=== PATIENT | female | born 1970 | race Caucasian/White ===

== ENCOUNTER 2022-01-09 19:13 | Emergency (ER) | payer OTHER, SELFPAY ==
[2022-01-09 19:20] VITALS: BP 134/98; PULSE 90; RESP 16; TEMP 36.6; O2SAT 96
--- NOTE | 2022-01-09 21:08 | XRR_ITS ---
PROCEDURE INFORMATION: Exam: XR Chest Exam date and time: 01/09/2022 9:21 PM Age: 51 years old Clinical indication: Cough TECHNIQUE: Imaging protocol: Radiologic exam of the chest. Views: 1 view. COMPARISON: No relevant prior studies available. FINDINGS: Lungs: Unremarkable. No consolidation. Pleural spaces: Unremarkable. No pleural effusion. No pneumothorax. Heart/Mediastinum: Unremarkable. No cardiomegaly. Bones/joints: Unremarkable. XR/XR chest 1V portable [id number] IMPRESSION: No acute findings.
--- NOTE | 2022-01-09 21:08 | W.ED.NAVMDI ---
HPI - Nausea/Vomiting/Diarrhea General: Chief complaint: Nausea/Vomiting/Diarrhea Stated complaint: N\V Lower Back Pain\Muscles Ache Time Seen by Provider: 01/09/22 21:03 Source: patient Mode of arrival: ambulatory Limitations: no limitations History of Present Illness: 51-year-old female states that since Sunday she has been having a fever along with body aches and feeling ill states she had vomiting and diarrhea since then as well. She said some lower back pain denies any blood in her stool or vomit she had a slight cough as well her last fever was 2 days ago she denies any worsening proving factors states her has been ill as well. Associated nausea: Yes Associated symtoms: Reports nausea; Denies chest pain, dysuria or headache(s) Review of Systems Const: Reports: fever(s), chills and body aches Eyes: Denies: blurry vision or eye discomfort ENMT: Denies: throat pain or dental pain Card: Denies: chest pain Resp: Denies: dyspnea GI: Reports: nausea, vomiting and diarrhea : Denies: dysuria Musc: Denies: neck pain or back pain Skin/Breast: Denies: rash Neuro: Denies: headache(s) Psych: Denies: depression Albin/Lymph: Denies: easy bruising All/Imm: Denies: urticaria PFSH ED PFSH: Medical History Hypertension Social History (Updated 01/09/22 @ 21:09 by Sharon Ross MD) Substance/Drug Use: never Physical Exam Const: COMMON NORMALS: no acute distress, patient oriented x3 and healthy appearing HENMT: COMMON NORMALS: normocephalic and atraumatic HEAD & SCALP: normocephalic and atraumatic Eye: COMMON NORMALS: Equal, round and reactive pupils present and EOMs intact bilaterally PUPIL: Yes Equal, round and reactive pupils present Neck/C-Spine: COMMON NORMALS: full ROM and supple Chest: COMMONS NORMALS: normal inspection of the chest and normal palpation of entire chest wall Resp: COMMON NORMALS: normal respiratory effort, No retractions, No use of accessory muscles and clear to auscultation bilaterally AUSCULTATION: clear to auscultation bilaterally Cardio: COMMON NORMALS: regular rate, regular rhythm and No murmurs present (Cardio) RATE: regular rate RHYTHM: regular rhythm GI: COMMON NORMALS: Normal to inspection, nondistended, normoactive bowel sounds present, Soft to palpation, non-tender and no masses PALPATION: Yes Soft to palpation Extremity: COMMON NORMALS: normal to inspection and full ROM Neuro: COMMON NORMALS: patient oriented x3, moves all extremities and no focal motor deficits Psych: COMMON NORMALS: mental status grossly normal, Normal thought process present and cooperative THOUGHT PROCESS: Normal thought process present Skin: COMMON NORMALS: no rashes or lesions noted and no wounds GENERAL SKIN EXAM: no rashes or lesions noted Course Vital Signs: Vital signs: Vital Signs Temperature 97.8 F 01/09/22 19:20 Pulse Rate 90 01/09/22 21:23 Respiratory Rate 14 01/09/22 21:23 Blood Pressure 142/94 01/09/22 21:23 Pulse Oximetry 96 01/09/22 19:20 Oxygen Delivery Me thod 01/09/22 19:20 MDM - Nausea/Vomiting/Diarrhea Medical Decision Making Patient presents here with fever body aches vomiting consistent with her COVID she did test positive for COVID here she is well-appearing she is stable for discharge she feels improved after fluids we will prescribe her Zofran for home as well. Lab Data : 01/09/22 21:15 01/09/22 21:15 Laboratory Results WBC 4.2 10^3/uL (4.0-10.0) 01/09/22 21:15 RBC 5.30 10^6/uL (4.1-5.3) 01/09/22 21:15 Hgb 15.3 g/dL (11.5-15.3) 01/09/22 21:15 Hct 44.5 % (37.0-47.0) 01/09/22 21:15 MCV 84.0 fl (81-99) 01/09/22 21:15 MCH 28.9 pg (28.0-34.0) 01/09/22 21:15 MCHC 34.4 g/dL (30.0-36.0) 01/09/22 21:15 RDW 12.3 % (12.1-15.1) 01/09/22 21:15 Plt Count 281 10^3/cmm (130-400) 01/09/22 21:15 MPV 9.6 fL (7.4-10.4) 01/09/22 21:15 Neut % (Auto) 46.9 % 01/09/22 21:15 Lymph % (Auto) 41.1 % 01/09/22 21:15 [place] % (Auto) 11.1 % 01/09/22 21:15 Eos % (Auto) 0.5 % 01/09/22 21:15 Baso % (Auto) 0.2 % 01/09/22 21:15 Neut # (Auto) 1.98 10^3/uL (1.8-7.7) 01/09/22 21:15 Lymph # (Auto) 1.7 10^3/uL (0.8-4.8) 01/09/22 21:15 [place] # (Auto) 0.5 10^3/uL (0.2-0.9) 01/09/22 21:15 Eos # (Auto) 0.0 10^3/uL (0.0-0.8) 01/09/22 21:15 Baso # (Auto) 0.0 10^3/uL (0.0-0.1) 01/09/22 21:15 Nucleated RBC % (auto) 0 % 01/09/22 21:15 Nucleated RBCs # 0.0 /100WBC 01/09/22 21:15 Sodium 135 mmol/L (136-145) L 01/09/22 21:15 Potassium 3.0 mmol/L (3.5-5.1) L 01/09/22 21:15 Chloride 92 mmol/L (98-107) L 01/09/22 21:15 Carbon Dioxide 30 mmol/L (22-29) H 01/09/22 21:15 Anion Gap 16.0 (5-19) 01/09/22 21:15 BUN 6 mg/dL (6-20) 01/09/22 21:15 Creatinine 0.4 mg/dL (0.5-0.9) L 01/09/22 21:15 GFR Calculation 167.0 mL/min (90-130) H 01/09/22 21:15 Glucose 88 mg/dL (65-115) 01/09/22 21:15 Calculated Osmolality 277 mOsm/kg (285-295) L 01/09/22 21:15 Calcium 9.2 mg/dL (8.5-10.5) 01/09/22 21:15 Total Bilirubin 0.4 mg/dL (0.15-1.2) 01/09/22 21:15 AST 41 U/L (0-32) H 01/09/22 21:15 ALT 32 U/L (0-33) 01/09/22 21:15 Alkaline Phosphatase 70 U/L (35-105) 01/09/22 21:15 Total Protein 7.1 g/dL (6.6-8.7) 01/09/22 21:15 Albumin 4.6 g/dL (3.5-5.2) 01/09/22 21:15 Globulin 2.5 g/dL (1.3-4.6) 01/09/22 21:15 Lipase 23 U/L (13-60) 01/09/22 21:15 SARS-CoV-2 Ag (Rapid) Positive (Negative) H 01/09/22 21:20 Discharge Plan Discharge Patient Disposition: Home Clinical Impression: COVID-19 Prescriptions: New ondansetron 4 mg tablet,disintegrating 4 mg PO Q6H PRN (Reason: nausea and vomiting) Qty: 14 0RF Discharge Orders: Discharge ED (Routine); Ordered 01/09/22 Ordered By: Sharon Ross Discharge Diet: Advance as tolerated Discharge Activity: Resume usual activity Patient Instructions: COVID-19 (Coronavirus Disease 2019) (ED) Coding Level of Care Code ED Furnace Combination Analyst for Paco Fwd Exam Comprehensive
[2022-01-09 21:23] VITALS: BP 142/94; PULSE 90; RESP 14
[2022-01-09] MEDS: ondansetron 2 mg/ML SDV 2 mL 4 MG IVP (21:25)
[2022-01-09] MEDS: sodium chloride 0.9% 1,000 ML 999 ML IV (21:25)
[2022-01-09 21:32] LABS: Basophils % 0.2 %; Eosinophils % 0.5 %; Hematocrit 44.5 % (37.0-47.0); Hemoglobin 15.3 g/dL (11.5-15.3); Lymphocytes # 1.7 10^3/uL (0.8-4.8); Lymphocytes % 41.1 %; Mean Corpuscular HGB Conc 34.4 g/dL (30.0-36.0); Mean Corpuscular Hemoglobin 28.9 pg (28.0-34.0); Mean Platelet Volume 9.6 fL (7.4-10.4); Monocytes # 0.5 10^3/uL (0.2-0.9); Monocytes % 11.1 %; Neutrophils # 1.98 10^3/uL (1.8-7.7); Neutrophils % 46.9 %; Nucleated Red Blood Cells % 0 %; Platelet Count 281 10^3/cmm (130-400); Red Cell Distribution Width 12.3 % (12.1-15.1); White Blood Count 4.2 10^3/uL (4.0-10.0)
[2022-01-09 22:03] LABS: SARS Covid-2 Antigen Positive (Negative)
[2022-01-09 22:04] LABS: Alanine Aminotransferase 32 U/L (0-33); Albumin Level 4.6 g/dL (3.5-5.2); Alkaline Phosphatase 70 U/L (35-105); Aspartate Amino Transferase 41 U/L (0-32); Blood Urea Nitrogen 6 mg/dL (6-20); Calcium 9.2 mg/dL (8.5-10.5); Carbon Dioxide 30 mmol/L (22-29); Chloride 92 mmol/L (98-107); Globulin 2.5 g/dL (1.3-4.6); Glucose 88 mg/dL (65-115); Lipase 23 U/L (13-60); Osmolality Calculated 277 mOsm/kg (285-295); Sodium 135 mmol/L (136-145); Total Bilirubin 0.4 mg/dL (0.15-1.2); Total Protein 7.1 g/dL (6.6-8.7)
[2022-01-09] MEDS: potassium chloride ER 20 mEq Tablet 40 MEQ PO (22:38)
[2022-01-09 23:04] LABS: Add Urine Microscopic? YES; Bilirubin Urine 1+ (Negative); Blood Urine Trace (Negative); Glucose Urine UA Norm (Normal); Ketones Urine 1+ (Negative); Leukocyte Esterase Urine Trace (Negative); Nitrate Urine Negative (Negative); Protein Urine 1+ (Negative); Specific Gravity, Urine 1.015 (1.005-1.030); Urine Appearance Hazy (CLEAR); Urine Color Yellow (Yellow); Urobilinogen Urine Norm (Negative); pH Urine 6 (5-7)
[2022-01-09 23:05] LABS: Bacteria Urine TRACE /hpf; RBC Urine RARE /hpf (0-2); Squamous Epithelial Cell Urine RARE /hpf (0-5); WBC Urine RARE /hpf (0-5)
[2022-01-09 23:11] VITALS: BP 145/93; PULSE 90; RESP 14
[2022-01-11 15:08] LABS: Lyme AB Screen <0.90 index
[2022-01-13 21:18] LABS: E. Chaffeensis AB IGG <1:64; E. Chaffeensis AB IGM <1:20
[2022-01-24 17:02] LABS: RMSF IGG DETECTED; RMSF IGM NOT DETECTED
== END 2022-01-09 23:12 | disposition home or self-care (01) ==
PROVIDERS: Emergency Provider Emergency Medicine
DX: U07.1 COVID-19 (principal); I10 Essential (primary) hypertension
CPT/HCPCS: 71045; 80053; 81001; 83690; 85025; 86618; 86666; 86757; 87426; 96361; 96374; 99284; J2405; J7030

== ENCOUNTER 2023-09-23 09:41 | Emergency (ER) | payer OTHER, SELFPAY ==
[2023-09-23 09:44] VITALS: BP 165/105; PULSE 100; RESP 16; TEMP 37.1; O2SAT 94
--- NOTE | 2023-09-23 10:08 | XRR_ITS ---
PROCEDURE INFORMATION: Exam: XR Chest Exam date and time: 09/23/2023 10:15 AM Age: 53 years old Clinical indication: Other: N/v; Additional info: Shortness of breath TECHNIQUE: Imaging protocol: Radiologic exam of the chest. Views: 1 view. Total images: 400 COMPARISON: CR XR chest 1V portable [id number] 01/09/2022 9:21 PM FINDINGS: Lungs: Unremarkable. No consolidation. Pleural spaces: Unremarkable. No pleural effusion. No pneumothorax. Heart/Mediastinum: Unremarkable. No cardiomegaly. Bones/joints: Unremarkable. XR/XR chest 1V [id number] IMPRESSION: No acute findings.
[2023-09-23 10:41] LABS: Basophils % 0.5 %; Eosinophils # 0.1 10^3/uL (0.0-0.8); Hematocrit 44.9 % (36-47); Lymphocytes # 1.4 10^3/uL (0.8-4.8); Lymphocytes % 22.2 %; Mean Corpuscular HGB Conc 33.9 g/dL (30-55); Mean Corpuscular Hemoglobin 28.7 pg (27-33); Mean Corpuscular Volume 84.9 fl (85-98); Monocytes # 0.7 10^3/uL (0.2-0.9); Monocytes % 11.3 %; Neutrophils # 4.09 10^3/uL (1.8-7.7); Neutrophils % 64.8 %; Nucleated Red Blood Cells % 0 %; Platelet Count 354 10^3/cmm (157-399); Red Blood Count 5.29 10^6/uL (3.85-5.65); Red Cell Distribution Width 12.7 % (12.1-15.1)
[2023-09-23 11:00] LABS: Alanine Aminotransferase 14 U/L (0-33); Albumin Level 4.1 g/dL (3.5-5.2); Alkaline Phosphatase 80 U/L (35-105); Anion Gap 20.7 (5-19); Aspartate Amino Transferase 16 U/L (0-32); Blood Urea Nitrogen 6 mg/dL (6-20); C Reactive Protein 86.2 mg/L (0.0-4.9); Calcium 9.5 mg/dL (8.5-10.5); Carbon Dioxide 25 mmol/L (22-29); Chloride 96 mmol/L (98-107); Globulin 3.7 g/dL (1.3-4.6); Glomerular Filtration Rate 128.1 mL/min (90-130); Glucose 87 mg/dL (65-115); Lipase 16 U/L (13-60); Osmolality Calculated 281 mOsm/kg (285-295); Potassium 4.7 mmol/L (3.5-5.1); Sodium 137 mmol/L (136-145); Total Bilirubin 0.4 mg/dL (0.15-1.2); Total Protein 7.8 g/dL (6.6-8.7)
--- NOTE | 2023-09-23 11:42 | ECG_ITS ---
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 Measurements Intervals [place] Rate: 63 P: 79 OR: 159 QRS: 62 QRSD: 82 T: 64 QT: 401 QTc: 414 Interpretive Statements SINUS RHYTHM SEPTAL MYOCARDIAL INFARCTION , OF INDETERMINATE AGE [40+ ms Q WAVE IN V1/V2] No previous ECG available for comparison Electronically Signed On 09-23-2023 13:09:27 CDT by Gracia Wood M.D. [id number]
--- NOTE | 2023-09-23 11:51 | ED_ITS ---
HPI - Nausea/Vomiting/Diarrhea 2 General: Chief complaint: Nausea/Vomiting/Diarrhea Stated complaint: n/v, headache Time Seen by Provider: 09/23/23 11:38 History of Present Illness: 53-year-old female presents emergency ro om complaining of nausea and vomiting for the last 3 days has had small amounts of blood and sinus drainage. Subjective fevers with headache nausea and vomiting. No hemoptysis. Denies productive cough or shortness of breath PFSH ED 2 PFSH: Medical History Hypertension Social History (Updated 01/09/22 @ 21:09 by Sharon Ross MD) Substance/Drug Use: never Course 2 Vital Signs: Vital signs: Vital Signs Temperature 98.8 F 09/23/23 09:44 Pulse Rate 100 09/23/23 09:44 Respiratory Rate 18 09/23/23 13:02 Blood Pressure 175/95 09/23/23 12:56 Pulse Oximetry 98 09/23/23 13:02 Oxygen Delivery Me thod Room Air 09/23/23 13:02 MDM - Nausea/Vomiting/Diarrhea Medical Decision Making Labs unremarkable except for some small amounts of hematuria. CT done did not show any acute abnormalities. Will have patient follow-up with her primary care if has any further symptoms regarding this. I think a lot of the recurrent symptoms are being driven by sinus drainage with likely sinusitis we will start her on oral antibiotics Augmentin twice daily Phenergan as needed for nausea vomiting follow-up with primary care if not improving Medical Records I reviewed the patient's medical records. Lab Data I reviewed the patient's lab results. 09/23/23 10:35 09/23/23 10:35 Radiology Impressions Chest X-Ray 09/23/23 10:08 IMPRESSION: No acute findings. Abdomen/Pelvis CT 09/23/23 13:05 IMPRESSION: 1. No renal, ureteral, nor bladder calculi detected. 2. No acute intra-abdominal pathology. Laboratory Results WBC 6.30 10^3/uL (3.29-11.43) 09/23/23 10:35 RBC 5.29 10^6/uL (3.85-5.65) 09/23/23 10:35 Hgb 15.20 g/dL (11.27-16.99) 09/23/23 10:35 Hct 44.9 % (36-47) 09/23/23 10:35 MCV 84.9 fl (85-98) L 09/23/23 10:35 MCH 28.7 pg (27-33) 09/23/23 10:35 MCHC 33.9 g/dL (30-55) 09/23/23 10:35 RDW 12.7 % (12.1-15.1) 09/23/23 10:35 Plt Count 354 10^3/cmm (157-399) 09/23/23 10:35 MPV 9.0 fL (7.4-10.4) 09/23/23 10:35 Neut % (Auto) 64.8 % 09/23/23 10:35 Lymph % (Auto) 22.2 % 09/23/23 10:35 [place] % (Auto) 11.3 % 09/23/23 10:35 Eos % (Auto) 1.0 % 09/23/23 10:35 Baso % (Auto) 0.5 % 09/23/23 10:35 Neut # (Auto) 4.09 10^3/uL (1.8-7.7) 09/23/23 10:35 Lymph # (Auto) 1.4 10^3/uL (0.8-4.8) 09/23/23 10:35 [place] # (Auto) 0.7 10^3/uL (0.2-0.9) 09/23/23 10:35 Eos # (Auto) 0.1 10^3/uL (0.0-0.8) 09/23/23 10:35 Baso # (Auto) 0.0 10^3/uL (0.0-0.1) 09/23/23 10:35 Nucleated RBC % (auto) 0 % 09/23/23 10:35 Nucleated RBCs # 0.0 /100WBC 09/23/23 10:35 Sodium 137 mmol/L (136-145) 09/23/23 10:35 Potassium 4.7 mmol/L (3.5-5.1) 09/23/23 10:35 Chloride 96 mmol/L (98-107) L 09/23/23 10:35 Carbon Dioxide 25 mmol/L (22-29) 09/23/23 10:35 Anion Gap 20.7 (5-19) H 09/23/23 10:35 BUN 6 mg/dL (6-20) 09/23/23 10:35 Creatinine 0.5 mg/dL (0.5-0.9) 09/23/23 10:35 GFR Calculation 128.1 mL/min (90-130) 09/23/23 10:35 Glucose 87 mg/dL (65-115) 09/23/23 10:35 Calculated Osmolality 281 mOsm/kg (285-295) L 09/23/23 10:35 Calcium 9.5 mg/dL (8.5-10.5) 09/23/23 10:35 Total Bilirubin 0.4 mg/dL (0.15-1.2) 09/23/23 10:35 AST 16 U/L (0-32) 09/23/23 10:35 ALT 14 U/L (0-33) 09/23/23 10:35 Alkaline Phosphatase 80 U/L (35-105) 09/23/23 10:35 C-Reactive Protein 86.2 mg/L (0.0-4.9) H 09/23/23 10:35 Total Protein 7.8 g/dL (6.6-8.7) 09/23/23 10:35 Albumin 4.1 g/dL (3.5-5.2) 09/23/23 10:35 Globulin 3.7 g/dL (1.3-4.6) 09/23/23 10:35 Lipase 16 U/L (13-60) 09/23/23 10:35 Urine Color Yellow (Yellow) 09/23/23 11:53 Urine Appearance Clear (CLEAR) 09/23/23 11:53 Urine pH 5 (5-7) 09/23/23 11:53 Ur Specific [place] 1.020 (1.005-1.030) 09/23/23 11:53 Urine Protein Neg (Negative) 09/23/23 11:53 Urine Glucose (UA) Norm (Normal) 09/23/23 11:53 Urine Ketones 3+ (Negative) H 09/23/23 11:53 Urine Blood 2+ (Negative) H 09/23/23 11:53 Urine Nitrate Negative (Negative) 09/23/23 11:53 Urine Bilirubin 1+ (Negative) H 09/23/23 11:53 Urine Urobilinogen Norm mg/dL (Negative) 09/23/23 11:53 Ur Leukocyte Esterase Negative (Negative) 09/23/23 11:53 Urine RBC 5-10 /hpf (0-2) H 09/23/23 11:53 Urine WBC 0-4 /hpf (0-5) H 09/23/23 11:53 Ur Squamous Epith Cells 0-4 /hpf (0-5) H 09/23/23 11:53 Amorphous Sediment Not Reportable 09/23/23 11:53 Urine Bacteria 1+ /hpf (NONE) H 09/23/23 11:53 Urine Mucus Trace /hpf 09/23/23 11:53 All radiology interpretation(s) finalized by discharge Discharge Plan Discharge Patient Disposition: Home Clinical Impression: Sinusitis, Hypertension, Nausea and vomiting Condition: Stable Prescriptions: New amoxicillin-pot clavulanate 875-125 mg tablet 1 tab PO BID Qty: 20 0RF promethazine 25 mg tablet 25 mg PO Q6H PRN (Reason: nausea and vomiting) Qty: 20 0RF No Action hydrochlorothiazide 25 mg tablet 25 mg PO DAILY nifedipine 60 mg tablet extended release 60 mg PO DAILY Discharge Orders: Discharge ED (Routine); Ordered 09/23/23 Ordered By: Josué Westbrook Discharge Diet: Usual diet Discharge Activity: Increase activity as tolerated Patient Instructions: Opioid Safety, Pain Management Activity Restrictions/Additional Instructions: Thank you for choosing [facility] for your healthcare needs today. Please realize this is an emergency room and that we are providing you with a medical screening exam and this may not be complete and all inclusive of all the testing and or work up that you may need to determine your ailment or severity of your illness. It is very important that you follow up as instructed or that you return to the Emergency Department should you have concerns or if your condition changes or worsens in any way. You were seen today for nausea and vomiting. During the course of your workup. Noted to have a small amount of blood in the urine CT did not show any significant abnormality. Recommend you follow-up with your primary care doctor regarding this. Your blood pressure was also elevated and this should be monitored by your primary care doctor. Continue to take your previously prescribed blood pressure medications. Suspect the sinus drainage bloody noses and nausea and vomiting or largely caused by sinus infection we will start you on Augmentin 1 tablet twice a day for 10 days. Also gave you promethazine to use as needed for nausea and vomiting. Coding Level of Care Code ED Seamstress Fitter for Paco Santoyo
[2023-09-23] MEDS: sodium chloride 0.9% 1,000 ML 999 ML IV (12:08)
[2023-09-23] MEDS: ondansetron 2 mg/ML SDV 2 mL 4 MG IVP (12:08)
[2023-09-23 12:13] VITALS: RESP 18
[2023-09-23 12:21] LABS: Add Urine Microscopic? YES; Bilirubin Urine 1+ (Negative); Blood Urine 2+ (Negative); Glucose Urine UA Norm (Normal); Ketones Urine 3+ (Negative); Leukocyte Esterase Urine Negative (Negative); Nitrate Urine Negative (Negative); Protein Urine Neg (Negative); Urine Appearance Clear (CLEAR); Urine Color Yellow (Yellow); Urobilinogen Urine Norm (Negative); pH Urine 5 (5-7)
[2023-09-23 12:22] LABS: Add Urine Culture? No; Bacteria Urine 1+ /hpf; Mucus Urine TRACE /hpf; Squamous Epithelial Cell Urine 0-4 /hpf (0-5); WBC Urine 0-4 /hpf (0-5)
[2023-09-23 12:56] VITALS: BP 175/95; O2SAT 97
[2023-09-23 13:02] VITALS: RESP 18; O2SAT 98
--- NOTE | 2023-09-23 13:05 | CTR_ITS ---
PROCEDURE INFORMATION: Exam: CT Abdomen And Pelvis Without Contrast Exam date and time: 09/23/2023 1:14 PM Age: 53 years old Clinical indication: Pain and abnormal findings; Abnormal lab test; Other: Microscopic hematuria; Abdominal pain; Generalized; Prior surgery; Surgery date: 6+ months; Surgery type: Hyster; Additional info: Flank pain TECHNIQUE: Imaging protocol: Computed tomography of the abdomen and pelvis without contrast. Total images: 3 Radiation optimization: All CT scans at this facility use at least one of these dose optimization techniques: automated exposure control; mA and/or kV adjustment per patient size (includes targeted exams where dose is matched to clinical indication); or iterative reconstruction. COMPARISON: CR (CHEST, ) 09/23/2023 10:15 AM RADIATION DOSE METRICS: Total DLP (mGy-cm): 461.05 FINDINGS: Diaphragm: A small hiatal hernia is present. Liver: Benign liver granulomas. Gallbladder and bile ducts: Normal. No calcified stones. No ductal dilation. Pancreas: Normal. No ductal dilation. Spleen: Incidental splenic granulomata are noted. Adrenal glands: Normal. No mass. Kidneys and ureters: No renal, ureteral, nor bladder calculi detected. Stomach and bowel: Unremarkable. No obstruction. No mucosal thickening. Appendix: No evidence of appendicitis. Intraperitoneal space: Unremarkable. No free air. No significant fluid collection. Vasculature: Incidental phleboliths noted. Lymph nodes: Unremarkable. No enlarged lymph nodes. Urinary bladder: See Kidneys and ureters finding. Reproductive: Prior hysterectomy noted. Bones/joints: Disc degeneration is most notable at L5/S1. Soft tissues: Unremarkable. Other findings: Moderate atherosclerotic disease burden is evident. CT/CT kidney stone [id number] IMPRESSION: 1. No renal, ureteral, nor bladder calculi detected. 2. No acute intra-abdominal pathology.
== END 2023-09-23 14:03 | disposition home or self-care (01) ==
PROVIDERS: Emergency Medicine; Emergency Provider Family Medicine
DX: J32.9 Chronic sinusitis, unspecified (principal); I10 Essential (primary) hypertension; R11.2 Nausea with vomiting, unspecified
CPT/HCPCS: 71045; 74176; 80053; 81001; 83690; 85025; 86140; 93005; 96374; 99285; J2405; J7030

== ENCOUNTER → 2025-03-10 09:20 | Outpatient (BNVA) | payer OTHER, SELFPAY | PROVIDERS: Visit Provider Student in an Organized Health Care Education/Training Program | DX: M25.511 Pain in right shoulder (principal); R20.0 Anesthesia of skin; R20.2 Paresthesia of skin | CPT/HCPCS: 73030 ==

== ENCOUNTER 2025-04-06 07:56 | Outpatient (CLI) | payer OTHER, SELFPAY ==
--- NOTE | 2025-04-06 | IR_ITS ---
WS: [id number] RIGHT SHOULDER ARTHROGRAM UNDER FLUOROSCOPY. PRIOR TO MRI EVALUATION. HISTORY: rule out labrum tear, prior Bankart lesion repair. COMPARISON: None available. FLUOROSCOPY TIME: 0min [id number] # of spot films: 2 Procedure, risks and complications were explained to the patient. Consent has been obtained. Under fluoroscopic guidance the skin is marked over the medial superior third of the humeral head, cleansed with ChloraPrep and anesthetized with lidocaine. 22- gauge spinal needle is inserted to the cortex of the humeral head. Test injection with Omnipaque reveals the needle is appropriately positioned in the joint. A mixture of 10 cc sterile saline, 5 cc Omnipaque and 0.1 mmol gadolinium are injected under fluoroscopic guidance. Patient tolerated the joint distention well. No complications. IR/IR arthrogram shoulderRT [id number] IMPRESSION: Uncomplicated RIGHT shoulder joint injection prior to MRI.
--- NOTE | 2025-04-06 08:09 | MR_ITS ---
WS: [id number] MRI RIGHT SHOULDER ARTHROGRAM, pre and post arthrogram imaging. HISTORY: RIGHT shoulder pain. Prior shoulder surgery. COMPARISON: Radiograph 03/10/2025 TECHNIQUE: Pre and postcontrast imaging. Gadolinium mixture was injected under fluoroscopy. Coronal T1 fat sat, sagittal T2 fat sat, coronal T2 fat sat, axial proton density, axial T1 nonfat saturation views are submitted. Prearthrogram: Mild AC joint arthritis. Small osteophytes encroaching upon the myotendinous portion of the supraspinatus. There is a small amount of fluid in the subacromial and subdeltoid bursa. Minimal subacromial impingement by an enthesopathy. No os acromiale. Biceps tendon remains in normal position. There is a lobulated cystic mass in the distal supraspinatus tendon. Largest lobulated component measures 11 x 8 mm. There is a small fluid-filled tract extending to the central supraspinatus tendon. This cystic mass extends into the rotator cuff interval. The distal supraspinatus tendon is intact. Infraspinatus and subscapularis tendons and teres minor are intact. No muscle atrophy or edema. Humeral head is slightly high riding. Loss of the normal cartilage involving the superior humeral head. Abnormal signal and contour involving the anterior inferior labrum and the glenoid consistent with a healed prior Bankart repair. There is no edema and no acute tear identified. No labral tear is identified. Post arthrogram: Articular contrast extends along the supraspinatus tendon consistent with interstitial tear. Large lobular component does not distend completely with the injected contrast. The supraspinatus tendon tear can be retracted laterally to the inferior articular surface. No additional tears are identified. Irregularity involving the anterior inferior labral and glenoid from prior repair. There are a few subchondral cystic changes along the inferior glenoid. MR/MR shoulder RT wo/w con [id number] IMPRESSION: 1. Supraspinatus tendon tear extends to the articular surface and interstitial ly along the tendon. 2. Prior repair of the anterior inferior labrum and glenoid secondary to a Ban kart lesion. No acute marrow edema. Suspect these changes are related to the pr ior repair. No acute labral tear identified. 3. Slightly high riding humeral head with loss of cartilage involving the supe rior humeral head closely associated with the site of the supraspinatus tendon tear.
[2025-04-06] MEDS: gadobenate dimeglumine 20 mL vial 3 ML IV (10:24)
[2025-04-06] MEDS: iohexol 240 mg/mL 50 mL Btl 20 ML INTRA-ARTI (10:26)
== END 2025-04-06 07:57 | disposition home or self-care (01) ==
LOC: RAD 07:56
PROVIDERS: Visit Provider Student in an Organized Health Care Education/Training Program
DX: M25.511 Pain in right shoulder (principal); S46.011D Strain of muscle(s) and tendon(s) of the rotator cuff of right shoulder, subsequent encounter; X58.XXXD Exposure to other specified factors, subsequent encounter; Z87.828 Personal history of other (healed) physical injury and trauma
CPT/HCPCS: 23350; 73223; 77002; A9577; J9999; Q9966